=== PATIENT | male | born 1960 | race Caucasian/White ===

== ENCOUNTER 2017-04-01 14:17 | Inpatient (IN) | payer OTHER ==
[~2017-04-01] VITALS: Ht 188 cm; Wt 116.0 kg
[~2017-04-01 14:17] MED LIST: GEMF600T3 PO; SIMV10TA3 PO; WARF1POW PO
[2017-04-01 15:01] LABS: BASOPHILS # (AUTO) 0.05 x10^3/uL (0-0.1); BASOPHILS % (AUTO) 1 % (0-1); EOSINOPHILS % (AUTO) 1 % (1-7); LYMPHOCYTES # (AUTO) 2.57 x10^3/uL (1-3.4); LYMPHOCYTES % (AUTO) 27 % (22-44); MD NO; MEAN CORPUSCULAR HEMOGLOBIN 33.2 pg (27.5-34.5); MEAN CORPUSCULAR HGB CONC 34.2 g/dL (33.2-36.2); MEAN CORPUSCULAR VOLUME 97.1 fL (81-97); MEAN PLATELET VOLUME 8.1 fL (7.4-10.4); MONOCYTES # (AUTO) 0.78 x10^3/uL (0.2-0.8); MONOCYTES % (AUTO) 8 % (2-9); NEUTROPHILS # (AUTO) 6.13 x10^3/uL (1.8-6.8); NEUTROPHILS % (AUTO) 64 % (42-75); PLATELET COUNT 341 x10^3/uL (130-400); RED BLOOD COUNT 4.44 x10^6/uL (4.38-5.82); RED CELL DISTRIBUTION WIDTH 13.8 % (9.4-14.8)
[2017-04-01 15:04] LABS: ALBUMIN 4.1 g/dL (3.4-5.0); ANION GAP 7 mmol/L (5-15); CALCIUM 9.1 mg/dL (8.5-10.1); CHLORIDE 109 mmol/L (98-107); CREATININE 0.93 mg/dL (0.7-1.3)
[2017-04-01] MEDS ORDERED: LIDOCAINE 1%, 20ML SQ ONE (16:00)
[2017-04-01 16:51] LABS: SYN CELLS COUNTED 378
[2017-04-01] MEDS ORDERED: CEFAZOLIN PMX 1GM/50ML 50 ML IV ONE (18:00)
[2017-04-01] MEDS ORDERED: VANCOMYCIN PER PHARMACY MC ONE (18:00)
[2017-04-01] MEDS ORDERED: VANCOMYCIN 2,000 MG in SODIUM CHLORIDE 0.9% 500 ML IV ONE (18:30)
[2017-04-01] MEDS ORDERED: SODIUM CHLORIDE FLUSH 10ML SYR IVF PRN (18:30)
[2017-04-01] MEDS ORDERED: ACETAMINOPHEN 325 MG TABLET PO PRN (19:00)
[2017-04-01] MEDS ORDERED: hydrALAzine 20 MG/ML, 1ML IVPush PRN (19:00)
[2017-04-01] MEDS ORDERED: ONDANSETRON 2MG/ML, 2ML IVPush PRN (19:00)
[2017-04-01] MEDS ORDERED: VANCOMYCIN PER PHARMACY MC PRN (19:00)
[2017-04-01 20:04] VITALS: BP 141/77
[2017-04-01] MEDS ORDERED: PHARMACOKINETIC MONITORING MC PRN (20:30)
[2017-04-01] MEDS ORDERED: PHARMACOKINETIC CONSULTATION MC ONE (20:30)
[2017-04-01] MEDS: GEMFIBROZIL 600 MG TABLET PO SCH (21:00)
[2017-04-01] MEDS: SODIUM CHLORIDE 0.9% 1,000 ML IV SCH (22:01)
[2017-04-01] MEDS: CEFAZOLIN PMX 1GM/50ML 50 ML IV SCH (22:01)
[2017-04-01] MEDS: TEMAZEPAM 15 MG CAPSULE PO PRN (22:01)
[2017-04-02] MEDS: CEFAZOLIN PMX 1GM/50ML 50 ML IV SCH ×3 (04:46→21:36)
[2017-04-02 04:49] VITALS: BP 127/83
[2017-04-02 05:14] LABS: INTERNATIONAL NORMALIZED RATIO 1.66 (0.93-1.1); PROTHROMBIN TIME 17.1 Seconds (9.6-11.5)
[2017-04-02 05:37] LABS: BASOPHILS # (AUTO) 0.04 x10^3/uL (0-0.1); BASOPHILS % (AUTO) 1 % (0-1); EOSINOPHILS # (AUTO) 0.17 x10^3/uL (0-0.4); EOSINOPHILS % (AUTO) 3 % (1-7); LYMPHOCYTES # (AUTO) 2.42 x10^3/uL (1-3.4); LYMPHOCYTES % (AUTO) 36 % (22-44); MD NO; MEAN CORPUSCULAR HGB CONC 33.8 g/dL (33.2-36.2); MEAN CORPUSCULAR VOLUME 97.5 fL (81-97); MONOCYTES # (AUTO) 0.62 x10^3/uL (0.2-0.8); MONOCYTES % (AUTO) 9 % (2-9); NEUTROPHILS # (AUTO) 3.42 x10^3/uL (1.8-6.8); NEUTROPHILS % (AUTO) 51 % (42-75); PLATELET COUNT 290 x10^3/uL (130-400); RED BLOOD COUNT 4.23 x10^6/uL (4.38-5.82); RED CELL DISTRIBUTION WIDTH 14.1 % (9.4-14.8)
[2017-04-02 07:16] VITALS: BP 133/87
[2017-04-02] MEDS: GEMFIBROZIL 600 MG TABLET PO SCH (08:00)
[2017-04-02] MEDS: SODIUM CHLORIDE 0.9% 1,000 ML IV SCH (08:45)
[2017-04-02] MEDS: VANCOMYCIN 2,000 MG in SODIUM CHLORIDE 0.9% 500 ML IV SCH (12:00)
[2017-04-02] MEDS ORDERED: VANCOMYCIN 2,000 MG in SODIUM CHLORIDE 0.9% 500 ML IV SCH (13:00)
[2017-04-02 13:14] VITALS: BP 129/71
[2017-04-02] MEDS ORDERED: GEMFIBROZIL 600 MG TABLET PO SCH (17:30)
[2017-04-02] MEDS ORDERED: WARFARIN 7.5 MG TABLET PO-COUM SCH ×3 (18:00→18:01)
[2017-04-02] MEDS: SIMVASTATIN 20 MG TABLET HOMEMEDPO SCH (18:04)
[2017-04-02 19:00] VITALS: BP 132/80
[2017-04-02] MEDS ORDERED: SIMVASTATIN 20 MG TABLET PO SCH (19:00)
[2017-04-02] MEDS: TEMAZEPAM 15 MG CAPSULE PO PRN (21:35)
[2017-04-03] MEDS: VANCOMYCIN 2,000 MG in SODIUM CHLORIDE 0.9% 500 ML IV SCH (00:32)
[2017-04-03] MEDS: SODIUM CHLORIDE 0.9% 1,000 ML IV SCH ×3 (00:33→19:29)
[2017-04-03 02:26] VITALS: BP 141/78
[2017-04-03] MEDS: CEFAZOLIN PMX 1GM/50ML 50 ML IV SCH ×3 (06:14→23:53)
[2017-04-03 07:32] VITALS: BP 135/85
[2017-04-03] MEDS: GEMFIBROZIL 600 MG TABLET HOMEMEDPO SCH ×2 (08:00→17:00)
[2017-04-03 13:06] VITALS: BP 131/80
[2017-04-03] MEDS: SIMVASTATIN 20 MG TABLET HOMEMEDPO SCH (19:00)
[2017-04-03 19:11] VITALS: BP 134/74
[2017-04-03] MEDS: VANCOMYCIN 2,300 MG in SODIUM CHLORIDE 0.9% 500 ML IV SCH (19:29)
[2017-04-03] MEDS: TEMAZEPAM 15 MG CAPSULE PO PRN (22:13)
[2017-04-04 01:37] VITALS: BP 122/81
[2017-04-04 05:39] LABS: CREATININE 0.76 mg/dL (0.7-1.3)
[2017-04-04 07:20] VITALS: BP 131/77
[2017-04-04] MEDS: CEFAZOLIN PMX 1GM/50ML 50 ML IV SCH (09:14)
[2017-04-04] MEDS: GEMFIBROZIL 600 MG TABLET HOMEMEDPO SCH ×2 (09:14→18:06)
[2017-04-04] MEDS: VANCOMYCIN 2,300 MG in SODIUM CHLORIDE 0.9% 500 ML IV SCH (10:36)
[2017-04-04 12:48] VITALS: BP 117/73
[2017-04-04] MEDS: CLINDAMYCIN 300 MG CAPSULE PO SCH ×2 (18:07→23:03)
[2017-04-04 18:52] LABS: INTERNATIONAL NORMALIZED RATIO 1.24 (0.93-1.1); PROTHROMBIN TIME 12.7 Seconds (9.6-11.5)
[2017-04-04 19:24] VITALS: BP 141/67
[2017-04-04] MEDS ORDERED: SIMVASTATIN 20 MG TABLET PO SCH ×2 (19:37→20:05)
[2017-04-04] MEDS ORDERED: WARFARIN 3 MG TABLET PO-COUM ONE (20:00)
[2017-04-04] MEDS ORDERED: WARFARIN 2 MG TABLET PO-COUM ONE (20:18)
[2017-04-04] MEDS ORDERED: WARFARIN 5 MG TABLET PO-COUM ONE (20:18)
[2017-04-04] MEDS: SODIUM CHLORIDE 0.9% 1,000 ML IV SCH (21:00)
[2017-04-04] MEDS: TEMAZEPAM 15 MG CAPSULE PO PRN (23:08)
[2017-04-05 02:02] VITALS: BP 95/56
[2017-04-05 05:12] LABS: INTERNATIONAL NORMALIZED RATIO 1.29 (0.93-1.1); PROTHROMBIN TIME 13.2 Seconds (9.6-11.5)
[2017-04-05] MEDS: CLINDAMYCIN 300 MG CAPSULE PO SCH ×2 (05:41→11:15)
[2017-04-05] MEDS: SODIUM CHLORIDE 0.9% 1,000 ML IV SCH (07:00)
[2017-04-05] MEDS ORDERED: GEMFIBROZIL 600 MG TABLET PO SCH (08:00)
[2017-04-05 08:14] VITALS: BP 112/73
[2017-04-05] MEDS ORDERED: CLIN300C8 PO (11:57)
[2017-04-05 14:25] VITALS: BP 138/77
[2017-04-05] MEDS ORDERED: WARFARIN 3 MG TABLET PO-COUM ONE (18:00)
== END 2017-04-05 16:36 | disposition home or self-care (01) | DRG 558 ==
LOC: ED 16:57 → EDIP 18:12 → 3NE 20:00 → DCLOUNGE 04-05 16:13
PROVIDERS: ADMIT Hospitalist; ATTEND Hospitalist
DX: M71.121 Other infective bursitis, right elbow (principal); D68.59 Other primary thrombophilia; E78.5 Hyperlipidemia, unspecified; F17.210 Nicotine dependence, cigarettes, uncomplicated; I10 Essential (primary) hypertension; Z79.01 Long term (current) use of anticoagulants; Z83.2 Family history of diseases of the blood and blood-forming organs and certain disorders involving the immune mechanism; Z86.718 Personal history of other venous thrombosis and embolism
CPT/HCPCS: 29105; 36415; 80048; 82040; 82565; 82945; 83605; 83615; 84145; 84157; 84560; 85025; 85610; 85810; 87040; 87070; 87205; 89050; 89060; 99285; J0690; J3370; J7030; J7040

== ENCOUNTER 2017-08-23 14:59 | Emergency (ER) | payer OTHER ==
[~2017-08-23] VITALS: Ht 188 cm; Wt 118.4 kg
[~2017-08-23 14:59] MED LIST changes: +CLIN300C8 PO
[2017-08-23 15:56] LABS: BASOPHILS # (AUTO) 0.04 x10^3/uL (0-0.1); BASOPHILS % (AUTO) 1 % (0-1); EOSINOPHILS # (AUTO) 0.13 x10^3/uL (0-0.4); EOSINOPHILS % (AUTO) 2 % (1-7); LYMPHOCYTES # (AUTO) 2.49 x10^3/uL (1-3.4); LYMPHOCYTES % (AUTO) 31 % (22-44); MD NO; MEAN CORPUSCULAR HEMOGLOBIN 32.7 pg (27.5-34.5); MEAN CORPUSCULAR HGB CONC 33.9 g/dL (33.2-36.2); MEAN CORPUSCULAR VOLUME 96.6 fL (81-97); MEAN PLATELET VOLUME 8.5 fL (7.4-10.4); MONOCYTES # (AUTO) 0.64 x10^3/uL (0.2-0.8); MONOCYTES % (AUTO) 8 % (2-9); NEUTROPHILS # (AUTO) 4.71 x10^3/uL (1.8-6.8); NEUTROPHILS % (AUTO) 59 % (42-75); PLATELET COUNT 282 x10^3/uL (130-400); RED BLOOD COUNT 4.46 x10^6/uL (4.38-5.82); RED CELL DISTRIBUTION WIDTH 13.7 % (9.4-14.8)
[2017-08-23 16:06] LABS: ALBUMIN 4.2 g/dL (3.4-5.0); ANION GAP 7 mmol/L (5-15); CALCIUM 9.3 mg/dL (8.5-10.1); CHLORIDE 111 mmol/L (98-107)
[2017-08-23 16:09] LABS: ALANINE AMINOTRANSFERASE 38 U/L (12-78); ALKALINE PHOSPHATASE 44 U/L (45-117); BILIRUBIN,TOTAL 0.6 mg/dL (0.2-1.0); CREATININE 0.98 mg/dL (0.7-1.3); TOTAL PROTEIN 7.7 g/dL (6.4-8.2)
[2017-08-23 16:11] LABS: CULTURE INDICATED? YES; MICROSCOPIC INDICATED
[2017-08-23 17:29] VITALS: BP 132/75
== END 2017-08-23 17:43 | disposition home or self-care (01) ==
LOC: ED 17:33
DX: N30.00 Acute cystitis without hematuria (principal)
CPT/HCPCS: 36415; 80053; 81001; 85025; 87077; 87086; 87186; 99284